=== PATIENT | male | born 1990 | race Two or more races ===

== ENCOUNTER 2019-01-29 18:13 | Emergency (ER) | payer SELFPAY ==
[~2019-01-29] VITALS: Ht 170.2 cm; Wt 81.6 kg
[2019-01-29 19:17] VITALS: BP 146/67
--- NOTE | 2019-01-29 21:11 | PHYS DOC ---
Past Medical History Past Medical History: Other Additional Past Medical Histor: RENAL CYSTS Past Surgical History: No Surgical History Alcohol Use: None Drug Use: None Adult General Chief Complaint Chief Complaint: FLU SYMPTOM HPI HPI Patient is a 28 year old male who presents with fever, nausea, vomiting, diarrhea, sore throat, runny nose this been ongoing for 4 days. He also reports a cough. Patient been taking Tylenol at home to controls fever. Is able to keep fluids down at home. Review of Systems Review of Systems Constitutional: Reports fever or chills [] Eyes: Denies change in visual acuity, redness, or eye pain [] HENT: Reports nasal congestion, runny nose, and sore throat [] Respiratory: Reports cough Cardiovascular: No additional information not addressed in HPI [] GI: Reports n/v/d, Denies abdominal pain, bloody stools : Denies dysuria or hematuria [] Musculoskeletal: Denies back pain or joint pain [] Integument: Denies rash or skin lesions [] Neurologic: Reports headache, Denies focal weakness or sensory changes [] Endocrine: Denies polyuria or polydipsia [] Complete systems were reviewed and found to be within normal limits, except as documented in this note. Allergies Allergies Allergies Coded Allergies Type Severity Reaction Last Updated Verified No Known Drug Allergies 01/29/19 No Physical Exam Physical Exam Constitutional: Well developed, well nourished, no acute distress, non-toxic appearance. [] HENT: Normocephalic, atraumatic, bilateral external ears normal, bilateral tympanic membranes are pearly recinos, oropharynx moist, no oral exudates, nose turbinates inflamed. Eyes: PERRLA, EOMI, conjunctiva normal, no discharge. [] Neck: Normal range of motion, no tenderness, supple, no stridor. [] Cardiovascular:Heart rate regular rhythm, no murmur [] Lungs & Thorax: Bilateral breath sounds clear to auscultation [] Skin: Warm, dry, no erythema, no rash. [] Neurologic: Alert and oriented X 3, normal motor function, normal sensory function, no focal deficits noted. [] Psychologic: Affect normal, judgement normal, mood normal. [] Current Patient Data Vital Signs Vital Signs Date Time Temp Pulse Resp B/P (MAP) Pulse Ox O2 Delivery O2 Flow Rate FiO2 01/29/19 19:17 102.0 102 22 146/67 (93) 98 Room Air 102.0 EKG EKG [] Radiology/Procedures Radiology/Procedures [] Course & Med Decision Making Course & Med Decision Making Pertinent Labs and Imaging studies reviewed. (See chart for details) []Patient appears to have a viral syndrome. Likely has the FLU. Discussed with the patient the importance of drinking plenty of fluids and getting rest. Also discussed treating fever, and using Zyrtec for runny nose and congestion. A medical screening exam was performed on this patient and the patient does not appear to be having a medical emergency. His symptoms are not of sufficient severity and within reasonable medical probability it is unlikely the absence of immediate medical attention would result in placing the health of the individual in serious jeopardy, serious impairment to bodily functions, or serious dysfunction of any bodily organ or part. Dragon Disclaimer Dragon Disclaimer This electronic medical record was generated, in whole or in part, using a voice recognition dictation system. Departure Departure Impression: Primary Impression: Viral syndrome Additional Impression: Encounter for medical screening examination Disposition: 01 HOME, SELF-CARE Condition: STABLE Referrals: NO PCP (PCP) Patient Instructions: Medical Screening Exam, Viral Syndrome Additional Instructions: Thank you for visiting [facility]. We appreciate you trusting us with your care. If any additional problems come up don't hesitate to return to visit us. Please follow up with your primary care provider so they can plan additional care if needed and know about the problem that you had. If symptoms worsen come back to the Emergency Department. Any concerning symptoms that start such as chest pain, shortness of air, weakness or numbness on one side of the body, running high fevers or any other concerning symptoms return to the ER. Please drink plenty of fluids. If unable to keep fluids down please return to the ER. Please get plenty of rest. Please get [id number] Zyrtec, and Mucinex help runny nose and congestion. Please take per label instructions. Please take Ibuprofen and Tylenol for fever. Give each medication every 6 hours as directed by the medication labels. In order to utilize the peak of the med ications stagger the medications to where you are getting one of the medications every 3 hours. For example if you give Ibuprofen at 3 PM, you then give Tylenol at 6 PM and Ibuprofen again at 9 PM, and then Tylenol at midnight. Problem Qualifiers ANA SONG APRN Jan 29, 2019 21:11
== END 2019-01-29 20:21 | disposition home or self-care (01) ==
LOC: ER 18:31
DX: B34.9 Viral infection, unspecified (principal); R11.2 Nausea with vomiting, unspecified; R09.89 Other specified symptoms and signs involving the circulatory and respiratory systems; R50.9 Fever, unspecified
CPT/HCPCS: 99281